=== PATIENT | female | born 1985 | race Caucasian/White ===

== ENCOUNTER 2023-05-18 07:18 | Day surgery (SDC) | payer BC, SELFPAY ==
--- OUTSIDE RECORDS SUMMARY | 2023-05-18 07:22 | XMS_ITS | Clinical Summary ---
Author Name Unknown Organization [facility] Address [place], [place] [address] Care Team Providers Care Renewable Energy Project Manager Name Role Phone Stacy Neff MD Primary Care Provide r Allergies No known active allergies Medications Medication Sig Dispensed Refills Start Date End Date Status busPIRone (BUSPAR) 5 mg tabletIndications:PMD D (premenstrual dysphoric disorder) Take 1 Tablet (5 mg) by mouth 2 times daily if needed (pms mood symptoms). 30 Tablet 2 05/11/2023 Active Active Problems Problem Noted Date Diagnosed Date Pap smear for cervical cancer screening 03/27/20 Overview: 03/2023 NIL/HPV Negative Per 03/15/23 pap order: Abnormal Pap or Red Level Bx in last 5 years Yes Plan: Pap/HPV testing due in 3 years Alcohol abuse, in remission 05/26/2021 Anxiety 05/26/2021 Prolonged , antepartum 04/29/2014 Encounters Date Type Department Care Team Description 05/11/2023 9:40 AM SCHOOL LIBRARY MEDIA SPECIALIST Preop Visit [facility] [address] [place] [address] Stacy Neff MD Pre-Op Exam (Remove polyp hysteroscopy 05/18/23) 05/11/2023 Travel 04/06/2023 Telephone [facility] [address] [place] [address] Stacy Neff MD Results 03/29/2023 1:00 PM SCHOOL LIBRARY MEDIA SPECIALIST Ancillary Procedure [facility] [address] [place] [address] 03/29/2023 Travel 03/15/2023 10:45 AM SCHOOL LIBRARY MEDIA SPECIALIST Office Visit [facility] [address] [place] [address] Stacy Neff MD Waiter/Waitress Tourist Class Exam (Having issues with periods and hormones. The week before her period she has bad thoughts./Was getting yeast infections. Was told it could be gut health./[facility]. Autoimmune antibodies and Tyroid were elevated. /Was given OTC medications. Evening Compton, Milk Thistle Garlic,Reacted Magnesium, Cinnamon, D3 CDG EstroDIM, Selenium and caprin.) 03/15/2023 Travel from Last 3 Months Immunizations Name Administration Dates Next Due DTP 12/12/1991,06/12/1991,09/26/1989 ,12/01/1988 Hepatitis B, Unspecified 06/16/2010 Hib Conjugate, Unspecified 06/12/1991 Influenza, IIV3 (Age >=3 years) 02/28/2005 Influenza, IIV4 05/02/2014 MMR 08/10/1998,12/01/1988 Oral Polio Vaccine 12/12/1991,06/12/1991, 990,12/01/1988 Td (Age >=7 Years) 08/10/1998 Tdap 04/08/2014,05/05/2010 Family History Medical History Relation Name Comments Anxiety disorder Mother Depression Mother Rheum arthritis Mother Relation Name Status Comments Father Alive Mother Alive Social History Tobacco Use Types Packs/Day Years Used Date Smoking Tobacco: Former Cigarettes Q uit: 04/30/2006 Smokeless Tobacco: Never Tobacco Cessation:Counseling Given: Yes Alcohol Use Standard Drinks/Week Comments Yes 7 (1 standard drink = 0.6 oz pur e alcohol) PHQ-2 Answer Date Recorded PHQ-2 TOTAL SCORE 2 05/11/2023 Social Connections Answer Date Recorded Frequency of Communication with Friends and Fami ly 0 03/15/2023 Financial Resource Strain Answer Date R ecorded Difficulty of Paying Living Expenses 3 03/15/2023 Difficulty of Paying Living Expenses Not on file 03/15/2023 Food Insecurity Answer Date Recorded Worried About Running Out of Food in the Last Ye ar 1 03/15/2023 Transportation Needs Answer Date Record ed Lack of Transportation (Medical) 1 03/15/2023 Housing Stability Answer Date Recorded Unable to Pay for Housing in the Last Year 1 03/15/2023 Sex and Gender Information Value Date Recorded Sex Assigned at Not on file Gender Identity Not on file Sexual Orientation Not on file Obstetrics History Para Term AB IAB SAB Ectopic Multiple Livin g Live Births 1 0 0 0 0 0 0 0 0 0 Date Outcome GA Total Labor Labor/2nd/3rd Weight Sex Delivery Anes PTL Kamla A1 A5 Name Cl in Comments:System Genera joann. Please review and update details. Last Filed Vital Signs Vital Sign Reading Time Taken Comments Blood Pressure 107/66 05/11/2023 9:43 AM SCHOOL LIBRARY MEDIA SPECIALIST Pulse 57 05/11/2023 9:43 AM SCHOOL LIBRARY MEDIA SPECIALIST Temperature 36.7 ??C (98 ??F) 05/02/2014 8:30 AM SCHOOL LIBRARY MEDIA SPECIALIST Respiratory Rate 18 05/02/2014 8:30 AM SCHOOL LIBRARY MEDIA SPECIALIST Oxygen Saturation 100% 05/11/2023 9:43 AM SCHOOL LIBRARY MEDIA SPECIALIST Inhaled Oxygen Concentration - - Weight 82.6 kg (182 lb) 05/11/2023 9:43 AM SCHOOL LIBRARY MEDIA SPECIALIST Height 175.3 cm (5' 9) 05/11/2023 9:43 AM SCHOOL LIBRARY MEDIA SPECIALIST Body Mass Index 26.88 05/11/2023 9:43 AM SCHOOL LIBRARY MEDIA SPECIALIST Plan of Treatment Health Maintenance Due Date Last Done Comments COVID-19 vaccine series (#1) 04/05/1987 HIV for age 15-65 2001 Hepatitis C screening for ag e 18-79 2004 Influenza for age 9-49 12/08/2022 5, 02/28/2005 Tetanus booster 04/08/2024 04/08/2014, 05/05/2010, 08/10/1998 BMI (ht and wt on same day) for age 18+ 05/11/2024 05/11/2023, 03/15/2023 Depression screening for age 12+ 05/11/2024 05/11/2023, 01/24/2022, 05/26/2021 Pap test for age 21-65 03/15/2026 , 03/15/2023 Tdap Completed 04/08/2014, 05/05/2010 Pneumococcal series for age 6-64 Aged Out No longer eligible b ased on patient's age to complete this topic Procedures Procedure Name Priority Date/Time Associated Diagnosis Comments US PELVIS COMPLETE TA AND TV Routine 03/29/2023 1:35 PM SCHOOL LIBRARY MEDIA SPECIALIST Irregular menses GLUCOSE, RANDOM Routine 03/15/2023 12:10 PM SCHOOL LIBRARY MEDIA SPECIALIST Vaginal discharge THYROPEROXIDASE ANTIBODY Routine 03/15/2023 12:10 PM SCHOOL LIBRARY MEDIA SPECIALIST Family history of thyroid disease T4,FREE Routine 03/15/2023 12:10 PM SCHOOL LIBRARY MEDIA SPECIALIST Family history of thyroid disease TSH Routine 03/15/2023 12:10 PM SCHOOL LIBRARY MEDIA SPECIALIST Family history of thyroid disease PUBLICATIONS WRITER THIN PREP PAP SCREEN IMAGED Routine 03/15/2023 11:50 AM SCHOOL LIBRARY MEDIA SPECIALIST Screening for cervical cancer HPV THIN PREP Routine 03/15/2023 11:50 AM SCHOOL LIBRARY MEDIA SPECIALIST Screening for cervical cancer TRICHOMONAS, DINORAH, AND BACTERIAL VAGINOSIS BY PABLITO Routine 03/15/2023 11:50 AM SCHOOL LIBRARY MEDIA SPECIALIST Vaginal discharge from Last 3 Months Results * US PELVIS COMPLETE TA AND TV (03/29/2023 1:35 PM SCHOOL LIBRARY MEDIA SPECIALIST) Anatomical Region Laterality Modality Pelvis Ultrasound 04/04/2023 3:31 PM SCHOOL LIBRARY MEDIA SPECIALIST Impressions 04/04/2023 3:31 PM SCHOOL LIBRARY MEDIA SPECIALIST Heterogeneously thickened endometrium measuring 14 millimeters. Possible endometrial polyp measuring 1.1 cm. Dictated by Sanjeev Soto MD @ Apr 04 2023 ??3:31PM (Electronically Signed) ?? Narrative 04/04/2023 3:31 PM SCHOOL LIBRARY MEDIA SPECIALIST For Patients: ??As a result of the 21st Century Cures Act, medical imaging exams and procedure reports are released immediately into your electronic medical record. ??You may view this report before your referring provider. ??If you have questions, please contact your health care provider. INDICATION: Irregular menses COMPARISON: none TECHNIQUE: 2D anglin scale and color Doppler images were acquired of the pelvis using a transabdominal and transvaginal approach. FINDINGS: Sonographic images demonstrate a normal size and smooth outer contour of the uterus. Uterus measures 10.3 cm in length by 6.8 cm in AP diameter by 4.2 cm in transverse dimension. ??The myometrium has a normal uniform echotexture. The endometrial lining appears heterogeneous and measures 14 mm in composite thickness. Hyperechoic focus is present within the endometrium measuring 10 x 11 x 8 millimeters. The right ovary measures 4.0 x 1.3 x 1.5 cm in size and the left ovary is not visualized. The right ovary demonstrates normal arterial and venous blood flow on color Doppler analysis. There are no suspicious fluid collections within the cul-de-sac. Procedure Note Sanjeev Soto MD - 04/04/2023 For Patients: As a result of the Cures Act, medical imagingexams and procedure reports are released immediately into your electronicmedical record. You may view this report before your referring provider.If you have questions, please contact your health care provider. INDICATION: Irregular menses COMPARISON: none TECHNIQUE: 2D anglin scale and color Doppler images were acquired of the pelvis using atransabdominal and transvaginal approach. FINDINGS: Sonographic images demonstrate a normal size and smooth outer contour ofthe uterus. Uterus measures 10.3 cm in length by 6.8 cm in AP diameter by4.2 cm in transverse dimension. The myometrium has a normal uniformechotexture. The endometrial lining appears heterogeneous and measures 14mm in composite thickness. Hyperechoic focus is present within theendometrium measuring 10 x 11 x 8 millimeters. The right ovary measures 4.0 x 1.3 x 1.5 cm in size and the left ovary isnot visualized. The right ovary demonstrates normal arterial and venousblood flow on color Doppler analysis. There are no suspicious fluidcollections within the cul-de-sac. IMPRESSION: Heterogeneously thickened endometrium measuring 14 millimeters. Possibleendometrial polyp measuring 1.1 cm. Dictated by Sanjeev Soto MD @ Apr 04 2023 3:31PM (Electronically Signed) Stacy Neff MD US * GLUCOSE, RANDOM (03/15/2023 12:10 PM SCHOOL LIBRARY MEDIA SPECIALIST) GLUCOSE,RANDOM 94 65 - 139 mg/dL 03/15/2023 12:28 PM SCHOOL LIBRARY MEDIA SPECIALIST [facility] Blood BLOOD SPECIMEN / Unknown Venipuncture / Unknown 03/15/2023 12:10 PM SCHOOL LIBRARY MEDIA SPECIALIST 03/15/2023 12:11 PM SCHOOL LIBRARY MEDIA SPECIALIST Stacy Neff MD CHEMISTRY Performing Organization Address City/[facility]/ZIP Co de Phone Number [facility] [address] [place] [address], * TSH (03/15/2023 12:10 PM SCHOOL LIBRARY MEDIA SPECIALIST) TSH 1.18 0.27 - 4.20 uIU/mL 03/16/2023 1:41 AM SCHOOL LIBRARY MEDIA SPECIALIST [facility] Blood BLOOD SPECIMEN / Unknown Venipuncture / Unknown 03/15/2023 12:10 PM SCHOOL LIBRARY MEDIA SPECIALIST 03/15/2023 12:11 PM SCHOOL LIBRARY MEDIA SPECIALIST Narrative [facility] - 03/16/2023 1:41 AM SCHOOL LIBRARY MEDIA SPECIALIST In Adults, TSH values between 5.00 and 10.00 uIU/ml do not necessarily indicate the presence of Hypothyroidism. Correlation with clinical findings such as presence of goiter and/or Thyroperoxidase (TPO) Antibody may be helpful. For more information please refer to HENRIETTA 2004; 291: 228-238. Stacy Neff MD CHEMISTRY Performing Organization Address City/[facility]/ZIP Co de Phone Number [facility] [address] [place] [address], * THYROPEROXIDASE ANTIBODY (03/15/2023 12:10 PM SCHOOL LIBRARY MEDIA SPECIALIST) THYROPEROXIDASE MAIKOL 20.00 <34.00 IU/mL 03/16/2023 1:41 AM SCHOOL LIBRARY MEDIA SPECIALIST [facility] Blood BLOOD SPECIMEN / Unknown Venipuncture / Unknown 03/15/2023 12:10 PM SCHOOL LIBRARY MEDIA SPECIALIST 03/15/2023 12:11 PM SCHOOL LIBRARY MEDIA SPECIALIST Narrative [facility] - 03/16/2023 1:41 AM SCHOOL LIBRARY MEDIA SPECIALIST Biotin supplements may cause clinically significant interference for this test assay. ??If interference is suspected, it is strongly recommended that biotin is discontinued for at least one week prior to retesting. Stacy Neff MD SEND OUTS Performing Organization Address [facility] Co de Phone Number [facility] [address] [place] [address], * T4,FREE (03/15/2023 12:10 PM SCHOOL LIBRARY MEDIA SPECIALIST) T4,FREE 1.25 0.93 - 1.70 ng/dL 03/16/2023 1:41 AM SCHOOL LIBRARY MEDIA SPECIALIST [facility] Blood BLOOD SPECIMEN / Unknown Venipuncture / Unknown 03/15/2023 12:10 PM SCHOOL LIBRARY MEDIA SPECIALIST 03/15/2023 12:11 PM SCHOOL LIBRARY MEDIA SPECIALIST Stacy Neff MD CHEMISTRY Performing Organization Address [facility] Phone Number [facility] [address] [place] [address], [place] * TRICHOMONAS, DINORAH, AND BACTERIAL VAGINOSIS BY PABLITO (03/15/2023 11:50 AM SCHOOL LIBRARY MEDIA SPECIALIST) DINORAH SPECIES Negative Negative 3 3:28 PM SCHOOL LIBRARY MEDIA SPECIALIST [facility] DINORAH GLABRATA Negative Negative 03/16/2023 3:28 PM SCHOOL LIBRARY MEDIA SPECIALIST [facility] TRICHOMONAS VVA Negative Negative 3 3:28 PM SCHOOL LIBRARY MEDIA SPECIALIST [facility] BACTERIAL VAGINOSIS Negative Negative 03/16/2023 3:28 PM SCHOOL LIBRARY MEDIA SPECIALIST [facility] Other VAGINAL SWAB / Unknown Non-Blood / Unknown 03/15/2023 11:50 AM SCHOOL LIBRARY MEDIA SPECIALIST 03/15/2023 1:13 PM SCHOOL LIBRARY MEDIA SPECIALIST Stacy Neff MD MICROBIOLOGY Performing Organization Address [facility] Co de Phone Number [facility] [address] [place] [address], [place] * PUBLICATIONS WRITER THIN PREP PAP SCREEN IMAGED [[id number]] (03/15/2023 11:50 AM SCHOOL LIBRARY MEDIA SPECIALIST) Case Report Gynecologic Cytology Report ? Case: [id number] ? Authorizing Provider: ??Tawanda, Stacy Dee, ??Collected: ? 03/15/2023 1150 ? MD ? Ordering Location: ? [facility] ?? Received: ?03/15/2023 1313 ? Clinic ? First Screen: ?Janes Coleman ? Rescreen: ?Christina Rodriguez ? Specimen: ?PUBLICATIONS WRITER ThinPrep Vial Screening, Cervical ? 03/26/2023 1:10 PM SCHOOL LIBRARY MEDIA SPECIALIST [facility] [employer] LABORATORY-C ENTRAL LABORATORY INTERPRETATION/ RESULT NEGATIVE FOR INTRAEPITHELIAL LESION OR MALIGNANCY (NIL) (none) 03/26/2023 1:10 PM SCHOOL LIBRARY MEDIA SPECIALIST [facility] [employer] [facility]- ENTRAL LABORATORY IMEN ADEQUACY Satisfactory for evaluation No endocervical component seen 03/26/2023 1:10 PM SCHOOL LIBRARY MEDIA SPECIALIST [facility] [employer] [facility] HPV REQUEST HPV and PAP 03/26/2023 1:10 PM SCHOOL LIBRARY MEDIA SPECIALIST [facility] ENTRAL LABORATORY Date of LMP 02/28/2023 03/26/2023 1:10 PM SCHOOL LIBRARY MEDIA SPECIALIST [facility] ENTRAL LABORATORY Last Pap Date unknown 03/26/2023 1:10 PM SCHOOL LIBRARY MEDIA SPECIALIST [facility] ENTRAL [facility] Last Pap Result NIL 1:10 PM SCHOOL LIBRARY MEDIA SPECIALIST [facility] ENTRAL LABORATORY Abnormal Pap or Red Level Bx in last 5 years Yes 03/26/2023 1:10 PM SCHOOL LIBRARY MEDIA SPECIALIST [facility] ENTRAL LABORATORY Menstrual Status Regular Periods 03/26/2023 1:10 PM SCHOOL LIBRARY MEDIA SPECIALIST [facility]- ENTRAL LABORATORY Red Level Bx Done Today No 03/26/2023 1:10 PM SCHOOL LIBRARY MEDIA SPECIALIST [facility] ENTRAL LABORATORY Additional Information None given 03/26/2023 1:10 PM SCHOOL LIBRARY MEDIA SPECIALIST [facility] ENTRAL LABORATORY Comment: Cytology is screened at [facility] [employer] [facility], Central Laboratory - [address], [place] [address] and [facility] - [address], [place] [address] [facility] - [address] [place] [address] Interpreted at [facility] [employer] [facility], Central Laboratory - [address], [place] [address] Automated Review Successful 03/26/2023 1:10 PM SCHOOL LIBRARY MEDIA SPECIALIST [facility] ENTRAL LABORATORY Comment:Specimen processed s uccessfully by automated buck swamper device, ThinPrep Imaging System, [employer] ANCILLARY TESTING PUBLICATIONS WRITER HPV Ordered, Please see separate report 03/26/2023 1:10 PM SCHOOL LIBRARY MEDIA SPECIALIST [facility] Note The pap test is a screening technique, not a diagnostic procedure. It is used primarily to screen for squamous cancers and precursor lesions. Published studies have shown that it is subject to both false negative and false positive results. The pap test should not be used as the sole means to diagnose or exclude pre-malignant and malignant lesions. 03/26/2023 1:10 PM SCHOOL LIBRARY MEDIA SPECIALIST [facility] Other (Cervical) Non-Blood / Unknown 03/15/2023 11:50 AM SCHOOL LIBRARY MEDIA SPECIALIST 03/15/2023 1:13 PM SCHOOL LIBRARY MEDIA SPECIALIST Stacy Neff MD PATHOLOGY/CYT OLOGY Performing Organization Address [facility] de Phone Number [facility] [address] [place] [address], * HPV HIGH RISK (03/15/2023 11:50 AM SCHOOL LIBRARY MEDIA SPECIALIST) TYPE 16 Negative Negative 03/19/2023 4:29 PM SCHOOL LIBRARY MEDIA SPECIALIST [facility] TRAL LABORATORY TYPE 18 Negative Negative 03/19/2023 4:29 PM SCHOOL LIBRARY MEDIA SPECIALIST [facility] TRAL LABORATORY OTHER HIGH RISK TYPES Negative Negative 03/19/2023 4:29 PM SCHOOL LIBRARY MEDIA SPECIALIST [facility] Other (Cervical) Non-Blood / Unknown 03/15/2023 11:50 AM SCHOOL LIBRARY MEDIA SPECIALIST 03/16/2023 10:44 AM SCHOOL LIBRARY MEDIA SPECIALIST Narrative [facility] - 03/19/2023 4:29 PM SCHOOL LIBRARY MEDIA SPECIALIST HPV types 16, 18, 31, 33, 35, 39, 45, 51, 52, 56, 58, 59, 66 and 68 DNA were undetectable or below the pre-set threshold. Methodology: Tasneem Maurice 4800 HPV Test Stacy Neff MD MICROBIOLOGY Performing Organization Address [facility] Co de Phone Number [facility] [address] [place] [phone], from Last 3 Months Advance Directives Latest Code Status on File Code Status Date Activated Date Inactivated Comments Full Code 04/30/2014 3:31 AM 04/30/2014 7:38 PM Care Teams Renewable Energy Project Manager Relationship Specialty Start Date End Date Stacy Neff MD [address] [place] [address] PCP - General Family Practice 03/05/23
[2023-05-18] MEDS: LACTATED RINGERS 1000 ML 1,000 ML 100 ML IV (07:30)
[2023-05-18 07:44] VITALS: BMI 26.9
[2023-05-18 07:47] VITALS: BP 105/73; PULSE 67; RESP 16; TEMP 37.2; O2SAT 100
[2023-05-18 07:56] LABS: Hemoglobin* 14.1 gm/dL (12.0-16.0)
[2023-05-18] MEDS: SODIUM CHLORIDE 0.9 % (FLUSH) 10 ML SYRINGE IVF (08:00)
[2023-05-18 08:15] LABS: HCG Qualitative Serum* Negative (Negative)
--- NOTE | 2023-05-18 08:20 | W.PM.H&PU ---
History & Physical Update History & Physical Update H&P Reviewed and patient assessed: No changes noted H&P Updates: LMP: irregular spotting on and off but believes her menstrual cycle started on April 28. She is not sexually active. UPT: negative No other interval changes.
[2023-05-18] MEDS: SILVER NITRATE APPLICATOR 1 EACH STICK..EA. TOPICAL (09:27)
--- NOTE | 2023-05-18 09:39 | P.GYNPRC_ITS ---
Procedure Note Time Seen by Provider: 09:00 Date of procedure: 05/18/23 Procedure Description: Preoperative diagnosis: Annelise is 37 year-old with abnormal uterine bleeding - polyps Postoperative diagnosis: Same Procedure: Hysteroscopy, Dilation and Curettage, and polypectomy using the Truclear incisor Anesthesia: Conscious sedation, paracervical block. Surgeon: Lidia Self MD Criminal Court Judge: None Estimated blood loss: < 5 mL Specimen: Endometrial polyps/curettings to pathology. UOP: 20 cc Findings: Exam under anesthesia: Uterus: anterior position, less than 6 week sized, mobile, with no masses or nodularity palpable. Uterus sounded to 9.5 cm. No adnexal masses or nodularity palpable. On hysteroscopy: Numerous polyps along the anterior and posterior uterine wall (approximately 10). Large polyp obscuring the right tubal ostia. Bilateral tubal ostia was noted to be normal after polypectomy was performed. Procedure: Annelise was taken to the operating operating room more conscious sedation was found to be adequate. The patient was placed on in the dorsal lithotomy position and an exam under anesthesia was performed with findings stated above. She was then prepped and draped in a normal sterile manner. Bladder was drained with red rubber. A bivalve speculum was placed in the vagina. The cervix appears nulliparous. Otherwise no abnormalities. The paracervical block was placed using 1% lidocaine with epi, 5 mL was injected at the 4 and 8 o'clock p ositions on the cervix. The anterior lip of the cervix was grasped with a tenaculum. The cervix dilated to Hegar 6. The uterus sounded to 9.5 cm. The Truclear hysteroscope was advanced into the uterus. A diagnostic hysteroscopy was performed with normal saline as the insufflation medium. Findings are stated above. The Truclear incisor was then advanced through the camera. Polypectomy and global curettage was performed with the incisor until her all polyps were removed and the uterine cavity appears normal and uniformed. The incisor was then removed. The endometrial cavity appeared normal. Saline deficit at the end of the procedure 450 mL. Silver nitrate sticks were used for hemostasis on left tenaculum site. The hysteroscope, tenaculum clamp and speculum were removed from the vaginal canal. The patient tolerated the procedure well. Sponge, lap and instrument counts were correct x2 at the end of the procedure. The patient was taken to the recovery area in stable condition. Surgical debriefed performed and specimen reviewed.
--- NOTE | 2023-05-18 09:44 | W.ANESCHARGE ---
Anesthesia Charges Start Date/Time Anesthesia Start Date: 05/18/23 Anesthesia Start Time: 08:45 Stop Date/Time Anesthesia Stop Date: 05/18/23 Anesthesia Stop Time: 09:46
[2023-05-18 09:48] VITALS: BP 98/64; PULSE 62; RESP 14; TEMP 36.6; O2SAT 96
--- NOTE | 2023-05-18 09:54 | SUR.OPER ---
DEFICIT WAS 450
[2023-05-18 10:00] VITALS: BP 101/72; PULSE 63; RESP 16; O2SAT 96
[2023-05-18 10:16] VITALS: BP 101/69; PULSE 65; RESP 16; O2SAT 96
== END 2023-05-18 10:33 | disposition home or self-care (01) ==
PROVIDERS: PCP Family Medicine; Visit Provider Obstetrics & Gynecology
PROC: 0UDB8ZZ Extraction of Endometrium, Via Natural or Artificial Opening Endoscopic (ICD-10-PCS; CPT 58558; principal; 2023-05-18 08:45)
DX: N93.8 Other specified abnormal uterine and vaginal bleeding (principal); N84.0 Polyp of corpus uteri
CPT/HCPCS: 58558; 00952; 36415; 81025; 84703; 85018; 86850; 86900; 86901; 88305; A9270; J1100; J1630; J1885; J2250; J2405; J2704; J3010; J7120

== ENCOUNTER 2023-05-29 08:16 | Outpatient (CLI) | payer BC, SELFPAY ==
--- OUTSIDE RECORDS SUMMARY | 2023-05-30 06:29 | XMS_ITS | Clinical Summary ---
Author Name Unknown Organization [facility] & [facility] Address [place], [place] [address] Care Team Providers Care Inspector Aide Name Role Phone Stacy Neff MD Primary [...] Per 03/15/23 pap order: Abnormal Pap or [place] Bx in last 5 years Yes Plan: Pap/HPV testing due in 3 years Alcohol abuse, in remission 05/26/2021 Anxiety 05/26/2021 Prolonged , antepartum 04/29/2014 Encounters Date Type Department Care Team Description 05/18/2023 Orders Only [facility] Scanner 1 scan: (1-Ord) [facility], HYSTEROSCOPY, 05/18/2023 05/18/2023 Lab Requisition [facility] [phone] Lidia Self MD 05/11/2023 9:40 AM DRUG SAFETY SCIENTIST Preop Visit [facility] [address] [place] [address] Stacy Neff MD Pre-Op Exam (Remove polyp hysteroscopy 05/18/23) 05/11/2023 Travel 04/06/2023 Telephone [facility] [address] [facility] [place] [address] Stacy Neff MD Results 03/29/2023 1:00 PM DRUG SAFETY SCIENTIST Ancillary Procedure [facility] [address] [facility] [address] 03/29/2023 Travel 03/15/2023 10:45 AM DRUG SAFETY SCIENTIST Office Visit [facility] [address] [facility] [place] [address] Stacy Neff MD Research Soil Scientist Exam (Having issues with periods and hormones. The week before her period she has bad thoughts./Was getting yeast infections. Was told it could be gut health./Was seen formerly [facility]. Autoimmune antibodies and Tyroid were elevated. /Was given OTC medications. Evening [place], Milk Thistle Garlic,Reacted Magnesium, Cinnamon, D3 CDG [...] 0 0 Date Outcome GA Total Labor Labor//3rd Weight Sex Delivery Anes PTL Kamla A1 A5 Name Cl in Comments:System Genera joann. Please review and update details. Last Filed Vital Signs Vital Sign Reading Time Taken Comments Blood Pressure 107/66 05/11/2023 9:43 AM DRUG SAFETY SCIENTIST Pulse 57 05/11/2023 9:43 AM DRUG SAFETY SCIENTIST Temperature 36.7 ??C (98 ??F) 05/02/2014 8:30 AM DRUG SAFETY SCIENTIST Respiratory Rate 18 05/02/2014 8:30 AM DRUG SAFETY SCIENTIST Oxygen Saturation 100% 05/11/2023 9:43 AM DRUG SAFETY SCIENTIST Inhaled Oxygen Concentration - - Weight 82.6 kg (182 lb) 05/11/2023 9:43 AM DRUG SAFETY SCIENTIST Height 175.3 cm (5' 9) 05/11/2023 9:43 AM DRUG SAFETY SCIENTIST Body Mass Index 26.88 05/11/2023 9:43 AM DRUG SAFETY SCIENTIST Plan of Treatment Health Maintenance Due Date [...] 05/26/2021 Pap test for age 21-65 03/15/2026 3, 03/15/2023 Tdap Completed 04/08/2014, 05/05/2010 Pneumococcal series for age 6-64 Aged Out No longer eligible b ased on patient's age to complete this topic Procedures Procedure Name Priority Date/Time Associated Diagnosis Comments PATH TISSUE EXAM Routine 05/18/2023 9:41 AM DRUG SAFETY SCIENTIST LAB TRACKING EVENT Routine 05/18/2023 9: 20 AM DRUG SAFETY SCIENTIST SCAN-OPERATIVE/PROCEDUR E REPORT 05/18/2023 12:00 AM DRUG SAFETY SCIENTIST US PELVIS COMPLETE TA AND TV Routine 03/29/2023 1:35 PM DRUG SAFETY SCIENTIST Irregular menses GLUCOSE, RANDOM Routine 03/15/2023 12:10 PM DRUG SAFETY SCIENTIST Vaginal discharge THYROPEROXIDASE ANTIBODY Routine 03/15/2023 12:10 PM DRUG SAFETY SCIENTIST Family history of thyroid disease T4,FREE Routine 03/15/2023 12:10 PM DRUG SAFETY SCIENTIST Family history of thyroid disease TSH Routine 03/15/2023 12:10 PM DRUG SAFETY SCIENTIST Family history of thyroid disease UNDERPRESSER HAND THIN PREP PAP SCREEN IMAGED Routine 03/15/2023 11:50 AM DRUG SAFETY SCIENTIST Screening for cervical cancer HPV THIN PREP Routine 03/15/2023 11:50 AM DRUG SAFETY SCIENTIST Screening for cervical cancer TRICHOMONAS, DINORAH, AND BACTERIAL VAGINOSIS BY PABLITO Routine 03/15/2023 11:50 AM DRUG SAFETY SCIENTIST Vaginal discharge from Last 3 Months Results * PATH TISSUE EXAM (05/18/2023 9:41 AM DRUG SAFETY SCIENTIST) Case Report Pathology Report ?Case: [id number] ? Authorizing Provider: ??Lidia Self MD ?Collected: ? 05/18/2023 0941 ? Ordering Location: ? [facility] ?Received: ?05/19/2023 0533 ? Pathologist: ? Fernando Carl MD ? Specimen: ?Endometrial Polyp ? 05/21/2023 2:21 PM [facility] Final Diagnosis A) ENDOMETRIUM, POLYPECTOMY: 1. Fragments of benign endometrial polyp(s) 2. Background secretory endometrium 3. Negative for atypia and malignancy 05/21/2023 2:21 PM [facility] Clinical Information Abnormal uterine bleeding 05/21/2023 2:21 PM [facility] Gross Description A) Received in formalin, labeled with the patient's name and endometrial polyps, is a 4.0 x 2.7 x 1.4 cm aggregate of morcellated irwin tissue. The specimen is entirely submitted in 4 cassettes. KMN 05/19/2023 05/21/2023 2:21 PM [facility] Microscopic Description The final diagnosis is based on microscopic examination of appropriate sections of all specimens. 05/21/2023 2:21 PM DRUG SAFETY SCIENTIST [facility] Additional Information Interpreted at [facility] Laboratory - [address], [place] [address] 05/21/2023 2:21 PM DRUG SAFETY SCIENTIST [facility]- NTRAL LABORATORY Other (Endometrial Polyp) 05/18/2023 9:41 AM DRUG SAFETY SCIENTIST 05/19/2023 5:33 AM DRUG SAFETY SCIENTIST Lidia Self MD PATHOLOGY/CYTOLOGY Performing Organization Address [facility] Co de Phone Number [facility] [address] [place], [place] [id number], [place] * LAB TRACKING EVENT (05/18/2023 9:20 AM DRUG SAFETY SCIENTIST) Other (Other) Client Collect / Unknown 05/18/2023 9:20 AM DRUG SAFETY SCIENTIST 05/18/2023 9:47 PM DRUG SAFETY SCIENTIST Lidia Self MD LAB BILL ONLY Performing Organization Address [facility] Co de Phone Number [facility] [address] [place] [address], [place] * SCAN-OPERATIVE/PROCEDURE REPORT (05/18/2023 12:00 AM DRUG SAFETY SCIENTIST) Scanner OTHER * US PELVIS COMPLETE TA AND TV (03/29/2023 1:35 PM DRUG SAFETY SCIENTIST) Anatomical Region Laterality Modality Pelvis Ultrasound 04/04/2023 3:31 PM DRUG SAFETY SCIENTIST Impressions 04/04/2023 3:31 PM DRUG SAFETY SCIENTIST Heterogeneously thickened endometrium measuring 14 millimeters. Possible endometrial polyp measuring 1.1 cm. Dictated by Sanjeev Soto MD @ Apr 04 2023 ??3:31PM (Electronically Signed) ?? Narrative 04/04/2023 3:31 PM DRUG SAFETY SCIENTIST For Patients: ??As a result of the Century Cures Act, medical imaging exams and [...] @ Apr 04 2023 3:31PM (Electronically Signed) Stayc Neff MD [place] * GLUCOSE, RANDOM (03/15/2023 12:10 PM DRUG SAFETY SCIENTIST) GLUCOSE,RANDOM 94 65 - 139 mg/dL 03/15/2023 12:28 PM DRUG SAFETY SCIENTIST [facility] Blood BLOOD SPECIMEN / Unknown Venipuncture / Unknown 03/15/2023 12:10 PM DRUG SAFETY SCIENTIST 03/15/2023 12:11 PM DRUG SAFETY SCIENTIST Stacy Neff MD CHEMISTRY [facility] [address] [place] [address], * TSH (03/15/2023 12:10 PM DRUG SAFETY SCIENTIST) TSH 1.18 0.27 - 4.20 uIU/mL 03/16/2023 1:41 AM DRUG SAFETY SCIENTIST [facility] Blood BLOOD SPECIMEN / Unknown Venipuncture / Unknown 03/15/2023 12:10 PM DRUG SAFETY SCIENTIST 03/15/2023 12:11 PM DRUG SAFETY SCIENTIST Narrative [facility] - 03/16/2023 1:41 AM DRUG SAFETY SCIENTIST In Adults, TSH values between 5.00 and 10.00 uIU/ml do not necessarily indicate the presence of Hypothyroidism. Correlation with clinical findings such as presence of goiter and/or Thyroperoxidase (TPO) Antibody may be helpful. For more information please refer to [place]RI[place] 2004; 291: 228-238. Stacy Neff MD CHEMISTRY Performing Organization Address City/[facility]/ZIP Co de Phone Number [facility] [address] [place] [address], * THYROPEROXIDASE ANTIBODY (03/15/2023 12:10 PM DRUG SAFETY SCIENTIST) THYROPEROXIDASE MAIKOL 20.00 <34.00 IU/mL 03/16/2023 1:41 AM DRUG SAFETY SCIENTIST [facility] TR[facility]ORAT[facility] Blood BLOOD SPECIMEN / Unknown Venipuncture / Unknown 03/15/2023 12:10 PM DRUG SAFETY SCIENTIST 03/15/2023 12:11 PM DRUG SAFETY SCIENTIST Narrative [facility] - 03/16/2023 1:41 AM DRUG SAFETY SCIENTIST Biotin supplements may cause clinically significant interference for this test assay. ??If interference is suspected, it is strongly recommended that biotin is discontinued for at least one week prior to retesting. Stacy Neff MD SEND OUTS Performing Organization Address City/[facility] Co de Phone Number [facility] [address] [place] [id number], [place] * T4,FREE (03/15/2023 12:10 PM DRUG SAFETY SCIENTIST) T4,FREE 1.25 0.93 - 1.70 ng/dL 03/16/2023 1:41 AM DRUG SAFETY SCIENTIST [facility] Blood BLOOD SPECIMEN / Unknown Venipuncture / Unknown 03/15/2023 12:10 PM DRUG SAFETY SCIENTIST 03/15/2023 12:11 PM DRUG SAFETY SCIENTIST Stacy Neff MD CHEMISTRY Performing Organization Address [facility] Phone Number [facility] [address] [place] [address], [place] * TRICHOMONAS, DINORAH, AND BACTERIAL VAGINOSIS BY PABLITO (03/15/2023 11:50 AM DRUG SAFETY SCIENTIST) DINORAH SPECIES Negative Negative 3 3:28 PM DRUG SAFETY SCIENTIST [facility] DINORAH GLABRATA Negative Negative 03/16/2023 3:28 PM DRUG SAFETY SCIENTIST [facility] TRICHOMONAS VVA Negative Negative 3 3:28 PM DRUG SAFETY SCIENTIST [facility] LAB[facility] BACTERIAL VAGINOSIS Negative Negative 03/16/2023 3:28 PM DRUG SAFETY SCIENTIST [facility] Other VAGINAL SWAB / Unknown Non-Blood / Unknown 03/15/2023 11:50 AM DRUG SAFETY SCIENTIST 03/15/2023 1:13 PM DRUG SAFETY SCIENTIST Stacy Neff MD MICROBIOLOGY Performing Organization Address [facility] Co de Phone Number [facility] [address] [place] [address], [place] * UNDERPRESSER HAND THIN PREP PAP SCREEN IMAGED [[id number]] (03/15/2023 11:50 AM DRUG SAFETY SCIENTIST) Case Report Gynecologic Cytology Report ? Case: [id number] ? Authorizing Provider: ??Stacy Neff, ??Collected: ? 03/15/2023 1150 ? MD ? Ordering Location: ? [facility] ?? Received: ?03/15/2023 1313 ? Clinic ? First Screen: ?Janes Coleman ? Rescreen: ?Christina Rodriguez ? Specimen: ?UNDERPRESSER HAND ThinPrep Vial Screening, Cervical ? 03/26/2023 1:10 PM DRUG SAFETY SCIENTIST [facility]AL LABORAT[facility] INTERPRETATION/ RESULT NEGATIVE FOR INTRAEPITHELIAL LESION OR MALIGNANCY (NIL) (none) 03/26/2023 1:10 PM DRUG SAFETY SCIENTIST [facility] The Editorialist LABORATORY-C ENTRAL LABORATORY IMEN ADEQUACY Satisfactory for evaluation No endocervical component seen 03/26/2023 1:10 PM DRUG SAFETY SCIENTIST [facility] HPV REQUEST HPV and PAP 03/26/2023 1:10 PM DRUG SAFETY SCIENTIST [facility] The Editorialist [facility] Date of LMP 02/28/2023 03/26/2023 1:10 PM DRUG SAFETY SCIENTIST [facility] The Editorialist [facility] Last Pap Date unknown 03/26/2023 1:10 PM DRUG SAFETY SCIENTIST [facility] The Editorialist LABORATORY-C ENTRAL LABORATORY Last Pap Result NIL 1:10 PM DRUG SAFETY SCIENTIST [facility] The Editorialist [facility] Abnormal Pap or [place] Bx in last 5 years Yes 03/26/2023 1:10 PM DRUG SAFETY SCIENTIST [facility] The Editorialist LABORATORY-C ENTRAL LABORATORY Menstrual Status Regular Periods 03/26/2023 1:10 PM DRUG SAFETY SCIENTIST [facility] The Editorialist [facility] ENTRAL LABORATORY [place] Bx Done Today No 03/26/2023 1:10 PM DRUG SAFETY SCIENTIST [facility] The Editorialist [facility] Additional Information None given 03/26/2023 1:10 PM DRUG SAFETY SCIENTIST [facility] The Editorialist [facility] Comment: Cytology is screened at [facility] Addon[employer] [facility] Central Laboratory - [address], [place] [address] and [facility] - [address], [place] [address] and [facility] - [address] [place] [address] Interpreted at [facility] [employer] [facility] Central Laboratory - [address], [place] [address] Automated Review Successful 03/26/2023 1:10 PM DRUG SAFETY SCIENTIST [facility] ENTRAL LABORATORY Comment:Specimen processed s uccessfully by automated customer acquisition specialist device, Whole OpticsPrep Imaging System, [employer] ANCILLARY TESTING UNDERPRESSER HAND HPV Ordered, Please see separate report 03/26/2023 1:10 PM DRUG SAFETY SCIENTIST [facility] ENTRTX LABORATORY Note The pap test is a screening technique, not a diagnostic procedure. It is used primarily to screen for squamous cancers and precursor lesions. Published studies have shown that it is subject to both false negative and false positive results. The pap test should not be used as the sole means to diagnose or exclude pre-malignant and malignant lesions. 03/26/2023 1:10 PM DRUG SAFETY SCIENTIST [facility] LAB[facility]AT[facility] Other (Cervical) Non-Blood / Unknown 03/15/2023 11:50 AM DRUG SAFETY SCIENTIST 03/15/2023 1:13 PM DRUG SAFETY SCIENTIST Stacy Neff MD PATHOLOGY/CYT OLOGY [facility] [address] [place] [address], * HPV HIGH RISK (03/15/2023 11:50 AM DRUG SAFETY SCIENTIST) TYPE 16 Negative Negative 03/19/2023 4:29 PM DRUG SAFETY SCIENTIST [facility] TRAL LABORATORY TYPE 18 Negative Negative 03/19/2023 4:29 PM DRUG SAFETY SCIENTIST [facility] TR[facility] LABORATORY OTHER HIGH RISK TYPES Negative Negative 03/19/2023 4:29 PM DRUG SAFETY SCIENTIST [facility] Other (Cervical) Non-Blood / Unknown 03/15/2023 11:50 AM DRUG SAFETY SCIENTIST 03/16/2023 10:44 AM DRUG SAFETY SCIENTIST Narrative [facility] - 03/19/2023 4:29 PM DRUG SAFETY SCIENTIST HPV types 16, 18, 31, 33, 35, 39, 45, 51, 52, 56, 58, 59, 66 and 68 DNA were undetectable or below the pre-set threshold. Methodology: Tasneem Maurice 4800 HPV Test Stacy Neff MD MICROBIOLOGY [employer] LABORATORY-CENTRAL LABORATORY [address] [place] [address], [place] from Last 3 Months Advance Directives Latest Code Status on File Code Status Date Activated Date Inactivated Comments Full Code 04/30/2014 3:31 AM 04/30/2014 7:38 PM Care Teams Inspector Aide Relationship Specialty Start Date End Date Stacy Neff MD [address] [place] [address] PCP - General Family Practice 03/05/23
== END 2023-05-29 08:17 | disposition home or self-care (01) ==
LOC: NFLDREF 05-30 06:27
PROVIDERS: PCP Family Medicine; Referring Provider Family Medicine; Visit Provider Obstetrics & Gynecology
DX: R30.0 Dysuria (principal)
CPT/HCPCS: 87086

== ENCOUNTER 2024-03-03 09:37 | Outpatient (CLI) | payer BC, SELFPAY ==
--- OUTSIDE RECORDS SUMMARY | 2024-03-03 15:29 | XMS_ITS | Clinical Summary ---
Author Organization [facility] s & [facility] Address [place], [place] [address] Care Team Providers Care Trailer Driver Name Role Phone Stacy Neff MD Primary Care Provide r Allergies No known active allergies Medications Medication Sig Dispensed Refills Start Date End Date Status metroNIDAZOLE (FLAGYL) 500 mg tabletIndications:Dary terial vaginosis Take 1 Tablet (500 mg) by mouth two times daily. 14 Tablet 10/02/2023 Active busPIRone (BUSPAR) 10 mg tabletIndications:Anx iety Take 1 Tablet (10 mg) by mouth two times daily. 60 Tablet 11 11/19/2023 Active Active Problems Problem Noted Date Diagnosed Date Pap smear for cervical cancer screening 03/27/20 Overview (03/27/2023): 03/2023 NIL/HPV Negative Per 03/15/23 pap order: Abnormal Pap or [place] Bx in last 5 years Yes Plan: Pap/HPV testing due in 3 years Alcohol abuse, in remission 05/26/2021 Anxiety 05/26/2021 Prolonged , antepartum 04/29/2014 Encounters Date Type Department Care Team Description 01/10/2024 Telephone [facility] [address] [place] [address] Mu Parr, Psychology Student Late Cancel Appointment (01/11/2024 @10:15am) 01/04/2024 12:00 PM CDT Telemedicine [facility] [address] [place] [address] Mu Parr, Psychology Student Individual Therapy; Telehealth 01/04/2024 Travel 12/28/2023 12:00 PM CDT Telemedicine [facility] [address] [place] [address] Mu Parr, Psychology Student Individual Therapy; Telehealth 12/28/2023 Travel 12/13/2023 3:15 PM CDT Telemedicine [facility] [address] [place] [address] Mu Parr, Psychology Student Mental Health Intake; Telehealth 12/13/2023 Travel from Last 3 Months Immunizations Name [...] Answer Date Recorded PHQ-2 TOTAL SCORE 2 01/04/2024 Social Connections Answer Date Recorded Do you often feel lonely or isolated from those around you? 0 03/15/2023 Financial Resource Strain Answer Date R ecorded Difficulty of Paying Living Expenses 3 03/15/2023 Difficulty of Paying Living Expenses Not on file 03/15/2023 Food Insecurity Answer Date Recorded Do you worry your food will run out before you are able to buy more? 1 03/15/2023 Transportation Needs Answer Date Record ed Does lack of transportation keep you from medica l appointments? 1 03/15/2023 Does lack of transportation keep you from work, meetings or getting things that you need? 1 03/15/2023 Housing Stability Answer Date Recorded What is your housing situation today? 1 03/15/2023 Sex and Gender Information Value Date Recorded Sex Assigned at Not on file Gender Identity Not on file Sexual Orientation Not on file Obstetrics History Para Term AB IAB SAB Ectopic Multiple Livin g Live Births 1 0 0 0 0 0 0 0 0 0 Date Outcome GA Total Labor Labor/2nd/3rd Weight Sex Type Anes PTL Kamla A1 A5 Name Clin Comments:System Genera joann. Please review and update details. Last Filed Vital Signs Vital Sign Reading Time Taken Comments Blood Pressure 111/76 09/28/2023 9:40 AM CDT Pulse 63 09/28/2023 9:40 AM CDT Temperature 36.7 C (98 F) 05/02/2014 8:30 AM BUILDING ASSOCIATE Respiratory Rate 18 05/02/2014 8:30 AM BUILDING ASSOCIATE Oxygen Saturation 100% 09/28/2023 9:40 AM CDT Inhaled Oxygen Concentration - - Weight 79.3 kg (174 lb 12.8 oz) 09/28/2023 9:40 AM CDT Height 175.3 cm (5' 9) 05/11/2023 9:43 AM BUILDING ASSOCIATE Body Mass Index 25.81 05/11/2023 9:43 AM BUILDING ASSOCIATE Plan of Treatment Health Maintenance Due Date Last Done Comments COVID-19 vaccine series ( season) 2023 Influenza for age 9-49 12/09/2023 05/02/2014, 2004 Tetanus booster 04/08/2024 04/08/2014, 04/10, 08/10/1998 BMI (ht and wt on same day) for age 18+ 05/11/2024 05/11/2023, 03/15/2023 Depression screening for age 12+ 01/03/2025 01/04/2024, 12/28/2023, 11/19/2023, Additional history exists Pap test for age 21-65 03/15/2026 03/15/2023, 2022 Tdap Completed 04/08/2014, 05/05/2010 HIV for age 15-65 Completed 09/28/2023 Hepatitis C screening for age 18-79 Completed 09/28/2023 Pneumococcal series for age 6-64 Aged Out No longer eligible based on patient's age to complete this topic Procedures Procedure Name Priority Date/Time Associated Diagnosis Comments ANTI HIV 1/2 Routine 09/28/2023 11:12 AM CDT Screen for STD (sexually transmitted disease) ANTI HCV Routine 09/28/2023 11:12 AM CDT Screen for STD (sexually transmitted disease) HPV HIGH RISK Routine 03/15/2023 11:50 AM BUILDING ASSOCIATE Screening for cervical cancer from Last 3 Months or Most Recently Relevant to Health Maintenance Results * ANTI HCV (09/28/2023 11:12 AM CDT) HEPATITIS C ANTIBODY Non-Reacti ve Non-React lakeisha 09/28/2023 8:29 PM CDT [facility] Comment:Please note, per www .CDC.gov: If a patient is known to be at high risk of HCV infection, or is symptomatic, and the physician's suspicion of HCV infection is high, HCV RNA testing is often employed and is of diagnostic value, even after an initial negative anti-HCV test result. Blood BLOOD SPECIMEN / Unknown Venipuncture / Unknown 09/28/2023 11:12 AM CDT 09/28/2023 11:13 AM CDT Stacy Neff MD [facility] [address] [place] [address], * ANTI HIV 1/2 (09/28/2023 11:12 AM CDT) HIV-1/HIV-2 SCREEN Non-Reacti ve Non-Reacti ve 09/28/2023 8:31 PM CDT [facility] Comment:HIV-1 p24 and HIV-1/ HIV-2 Ab Not Detected. Blood BLOOD SPECIMEN / Unknown Venipuncture / Unknown 09/28/2023 11:12 AM CDT 09/28/2023 11:13 AM CDT Stacy Neff MD SEND OUTS [facility] [address] * HPV HIGH RISK (03/15/2023 11:50 AM BUILDING ASSOCIATE) TYPE 16 Negative Negative 03/19/2023 4:29 PM BUILDING ASSOCIATE [facility] TYPE 18 Negative Negative 03/19/2023 4:29 PM BUILDING ASSOCIATE [facility] TRAL LABORATORY OTHER HIGH RISK TYPES Negative Negative 03/19/2023 4:29 PM BUILDING ASSOCIATE [facility] TRA LABORATORY Other (Cervical) Non-Blood / Unknown 03/15/2023 11:50 AM BUILDING ASSOCIATE 03/16/2023 10:44 AM BUILDING ASSOCIATE Narrative [facility] - 03/19/2023 4:29 PM BUILDING ASSOCIATE HPV types 16, 18, 31, 33, 35, 39, 45, 51, 52, 56, 58, 59, 66 and 68 DNA were undetectable or below the pre-set threshold. Methodology: Tasneem Maurice 4800 HPV Test Stacy Neff MD MICROBIOLOGY Performing Organization Address City/[facility] Co de Phone Number [facility] [address] from Last 3 Months or Most Recently Relevant to Health Maintenance Advance Directives * Full Code (Latest Code Status on File) Date Activated Date Inactivated Comments 04/30/2014 3:31 AM 04/30/2014 7:38 PM Care Teams Trailer Driver Relationship Specialty Start Date End Date Stacy Neff MD [address] [place] [address] PCP - General Family Practice 03/05/23
== END 2024-03-03 09:38 | disposition home or self-care (01) ==
LOC: NFLDREF 15:27
PROVIDERS: PCP Family Medicine; Referring Provider Family Medicine
DX: R10.9 Unspecified abdominal pain (principal); N76.0 Acute vaginitis; B96.89 Other specified bacterial agents as the cause of diseases classified elsewhere
CPT/HCPCS: 87086

== ENCOUNTER 2025-01-27 19:15 | Outpatient (CLI) | payer BC, SELFPAY | END 2025-01-27 19:16 | disposition home or self-care (01) | LOC: NFLDREF 01-31 15:49 | PROVIDERS: PCP Family Medicine; Referring Provider Family Medicine; Visit Provider Physician Assistant | DX: N76.0 Acute vaginitis (principal) | CPT/HCPCS: 87086; 87491; 87591 ==